=== PATIENT | female | born 1990 | race Caucasian/White ===

== ENCOUNTER 2020-09-15 13:35 | Emergency (ER) | payer OTHER ==
[~2020-09-15 13:35] MED LIST: FEOSOL325 MG PO; MACROBID100 MG PO; PERCOCET 10/321 EACH PO; PRENATAL FORMU1 EACH PO; PYRIDIUM100 MG PO; REGLAN10 MG PO; ZOFRAN4 MG PO
[2020-09-15 14:24] LABS: BASOPHIL 1.3 % (0-2); EOSINOPHIL 5.9 % (0-5); HCT 26.1 % (37.0-47.0); MCH 25.5 pg (25.0-31.0); MCHC 29.5 g/dL (32.0-36.0); MCV 86.4 fL (78.0-100.0); MPV 8.9 fL (6.0-9.5); NRBC 0; PLT 409 K/uL (150-400); RBC 3.02 M/uL (4.20-5.40); WBC 6.2 K/uL (4.0-10.5)
[2020-09-15 14:28] LABS: HGB 7.7 g/dl (12.5-16.0)
[2020-09-15] MEDS ORDERED: FEOSOL325 MG PO (15:57)
== END 2020-09-15 16:54 | disposition home or self-care (01) ==
LOC: FER 13:35
PROVIDERS: Emergency Medicine
DX: D50.9 Iron deficiency anemia, unspecified (principal); Z88.0 Allergy status to penicillin
CPT/HCPCS: 36415; 85025; 99284

== ENCOUNTER 2021-01-26 20:46 | Emergency (ER) | payer OTHER ==
[2021-01-26] MEDS ORDERED: BACITRACIN15 GM TOP (21:25)
== END 2021-01-26 21:35 | disposition home or self-care (01) ==
LOC: FER 20:46
DX: T20.40XA Corrosion of unspecified degree of head, face, and neck, unspecified site, initial encounter (principal); T22.412A Corrosion of unspecified degree of left forearm, initial encounter; T22.411A Corrosion of unspecified degree of right forearm, initial encounter; T32.0 Corrosions involving less than 10% of body surface; Y92.009 Unspecified place in unspecified non-institutional (private) residence as the place of occurrence of the external cause
CPT/HCPCS: 99283

== ENCOUNTER 2021-10-25 17:25 | Emergency (ER) | payer OTHER ==
[~2021-10-25 17:25] MED LIST changes: +BACITRACIN15 GM TOP
[2021-10-25 19:03] LABS: BASOPHIL 1.1 % (0-2); EOSINOPHIL 2.5 % (0-5); HCT 34.5 % (37.0-47.0); HGB 10.5 g/dl (12.5-16.0); LYMPHOCYTE 31.8 % (15-48); MCH 24.6 pg (25.0-31.0); MCHC 30.4 g/dL (32.0-36.0); MCV 80.8 fL (78.0-100.0); MONOCYTE 9.2 % (0-12); MPV 9.7 fL (6.0-9.5); NEUTROPHIL 54.6 % (41-80); NRBC 0; PLT 454 K/uL (150-400); RBC 4.27 M/uL (4.20-5.40); RDW 16.6 % (11.5-14.0); WBC 7.9 K/uL (4.0-10.5)
[2021-10-25 19:09] LABS: BILIRUBIN NEGATIVE (NEGATIVE); BLOOD NEGATIVE Ery/uL (NEGATIVE); CLARITY CLEAR (CLEAR); COLOR YELLOW (YELLOW); GLUCOSE (U) NORMAL (NORMAL); LEUKOCYTES NEGATIVE Leu/uL (NEGATIVE); NITRITE NEGATIVE (NEGATIVE); PROTEIN NEGATIVE (NEGATIVE); SPECIFIC GRAVITY 1.025 (1.001-1.030); UROBILINOGEN 0.2 mg/dL (0.2-1.0); pH 6.5 (5.0-9.0)
[2021-10-25 19:16] LABS: BILIRUBIN - TOTAL 0.2 mg/dL (0.2-1.0); BUN/CREAT RATIO (CALC) 19.3 RATIO; CREATININE 0.57 mg/dL (0.51-0.95); POTASSIUM 3.9 mmol/L (3.5-5.1)
[2021-10-25 19:52] LABS: ALBUMIN 3.9 g/dL (3.4-5.0); GLOBULIN (CALCULATION) 4.1 g/dL
[2021-10-25] MEDS ORDERED: FEROSUL325 MG PO (20:33)
== END 2021-10-25 20:57 | disposition home or self-care (01) ==
LOC: FER 17:25
PROVIDERS: Physician Assistant
DX: D50.9 Iron deficiency anemia, unspecified (principal); F17.200 Nicotine dependence, unspecified, uncomplicated; Z86.16 Personal history of COVID-19; Z88.0 Allergy status to penicillin; Z88.1 Allergy status to other antibiotic agents
CPT/HCPCS: 36415; 71045; 80053; 81003; 83540; 83550; 84466; 85025; 85379; 93005

== ENCOUNTER 2022-04-26 19:51 | Emergency (ER) | payer OTHER ==
[~2022-04-26 19:51] MED LIST changes: +FEROSUL325 MG PO
[2022-04-26 22:35] LABS: BASOPHIL 1.3 % (0-2); EOSINOPHIL 2.8 % (0-5); HGB 11.6 g/dl (12.5-16.0); LYMPHOCYTE 36.7 % (15-48); MCH 30.7 pg (25.0-31.0); MCHC 33.1 g/dL (32.0-36.0); MCV 92.6 fL (78.0-100.0); MPV 9.4 fL (6.0-9.5); NEUTROPHIL 48.9 % (41-80); NRBC 0; PLT 340 K/uL (150-400); RBC 3.78 M/uL (4.20-5.40); RDW 12.4 % (11.5-14.0); WBC 6.1 K/uL (4.0-10.5)
[2022-04-26 22:50] LABS: BUN/CREAT RATIO (CALC) 16.7 RATIO; CREATININE 0.6 mg/dL (0.51-0.95); POTASSIUM 3.7 mmol/L (3.5-5.1)
[2022-04-26 23:09] LABS: CORONAVIRUS 2019 SARS-COV-2 NEGATIVE (NEGATIVE); INFLUENZA A NAA NEGATIVE (NEGATIVE)
== END 2022-04-27 00:15 | disposition home or self-care (01) ==
LOC: FER 19:51
PROVIDERS: Nurse Practitioner Family
DX: H53.8 Other visual disturbances (principal); R06.00 Dyspnea, unspecified; R11.0 Nausea; F41.9 Anxiety disorder, unspecified; Z88.0 Allergy status to penicillin; Z20.822 Contact with and (suspected) exposure to COVID-19; Z28.310 Unvaccinated for COVID-19
CPT/HCPCS: 36415; 70450; 71045; 80048; 84484; 85025; 93005; U0002